=== PATIENT | female | born 1995 | race Hispanic/Latino ===

== ENCOUNTER 2018-04-05 13:01 | Inpatient (IN) | payer MEDICAID, OTHER ==
[~2018-04-05] VITALS: Ht 157.5 cm; Wt 73.5 kg
[2018-04-05] MEDS ORDERED: DINOPROSTONE 10 MG VAGINAL SUPP VG SCH (14:30)
[2018-04-05] MEDS ORDERED: OXYTOCIN-LR 20 UNITS/1000 ML 1,000 ML IV SCH (14:30)
[2018-04-05 14:35] LABS: APPEARANCE,URINE CLOUDY (CLEAR); BILIRUBIN,URINE NEGATIVE (NEGATIVE); COLOR,URINE YELLOW (YELLOW); GLUCOSE, URINE (UA) NEGATIVE (NEGATIVE); KETONES,URINE NEGATIVE (NEGATIVE); LEUKOCYTE ESTERASE ,URINE LARGE (NEGATIVE); NITRATE,URINE NEGATIVE (NEGATIVE); OCCULT BLOOD,URINE TRACE-INTACT (NEGATIVE); PROTEIN,URINE TRACE (NEGATIVE); UROBILINOGEN,URINE 0.2 mg/dL (0.2-1.0)
[2018-04-05 14:36] LABS: HEMATOCRIT 35.4 % (36-48); MEAN CORPUSCULAR HEMOGLOBIN 28.5 pg (27.0-33.0); MEAN CORPUSCULAR HGB CONC 33.9 g/dL (32.0-36.0); NUCLEATED RED BLOOD CELLS 0.1 % (0.0-0.19); PLATELET COUNT (AUTO) 245 K/uL (130-400); RED BLOOD CELL COUNT(AUTO) 4.21 MIL/uL (4.00-5.50); RED CELL DISTRIBUTION WIDTH 14.4 % (11.0-15.5); WHITE BLOOD COUNT (AUTO) 7.5 K/uL (4.8-10.8)
[2018-04-05] MEDS: LACTATED RINGERS 1000ML 1,000 ML IV PRN ×2 (14:40→22:43)
[2018-04-05 14:43] LABS: BACTERIA,URINE Few /HPF (None Seen); SQUAMOUS EPITHELIAL CELL,UR Moderate /HPF (0-2)
[2018-04-05 14:44] LABS: MUCUS,URINE Rare LPF (None Seen)
[2018-04-05] MEDS ORDERED: ACETAMINOPHEN 325 MG TAB PO PRN (22:15)
[2018-04-05] MEDS ORDERED: ACETAMINOPHEN 325 MG TAB ONE (23:00)
[2018-04-06] MEDS: LACTATED RINGERS 1000ML 1,000 ML IV PRN (03:35)
[2018-04-06] MEDS ORDERED: LACTATED RINGERS 1000ML 1,000 ML IV ONE ×2 (03:50→19:05)
[2018-04-06] MEDS ORDERED: OXYTOCIN 10 USP UNITS/ML ONE ×2 (03:51→19:05)
[2018-04-06] MEDS: OXYTOCIN 10 USP UNITS/ML 20 UNIT in LACTATED RINGERS 1000ML 1,000 ML IV SCH ×2 (03:59→19:18)
[2018-04-06 10:23] LABS: HEPATITIS Bs ANTIGEN SCREEN P Negative (Negative)
[2018-04-06] MEDS ORDERED: MEPERIDINE-PF 50 MG/ML SYG IVP ONE (11:15)
[2018-04-06] MEDS ORDERED: PROMETHAZINE HCL 25 MG/ML 1ML AMPULE IM SCH (11:15)
[2018-04-06] MEDS ORDERED: MEPERIDINE-PF 50 MG/ML SYG ONE (11:19)
[2018-04-06] MEDS ORDERED: PROMETHAZINE HCL 25 MG/ML 1ML AMPULE IM ONE (11:19)
[2018-04-06] MEDS ORDERED: MEPERIDINE-PF 50 MG/ML SYG IVP SCH (11:30)
[2018-04-06] MEDS ORDERED: LACTATED RINGERS 1000ML 1,000 ML IV SCH (16:00)
[2018-04-06] MEDS ORDERED: CEFAZOLIN SODIUM 1 GM VIAL IVP PRN (16:00)
[2018-04-06] MEDS ORDERED: CEFAZOLIN SODIUM 1 GM VIAL ONE (16:13)
[2018-04-06] MEDS ORDERED: FENTANYL CITRATE PF 50 MCG/1 ML 2ML VIAL ONE (16:37)
[2018-04-06] MEDS ORDERED: DURAMORPH PF1 MG/ML 10ML AMP IV ONE (16:37)
[2018-04-06] MEDS ORDERED: SENSORCAINE/DEXT/PF 0.75% 2ML AMP IJ ONE (16:39)
[2018-04-06] MEDS ORDERED: METHYLERGONOVINE MALEATE 0.2 MG/1 ML ML ONE (17:02)
[2018-04-06] MEDS ORDERED: ONDANSETRON HCL 4 MG/2 ML VIAL ONE (17:09)
[2018-04-06] MEDS ORDERED: PHENYLEPHRINE HCL 10 MG/ML 1ML VIAL IV ONE (17:09)
[2018-04-06] MEDS ORDERED: SODIUM CHLORIDE 0.9% 10 ML VIAL ONE (17:09)
[2018-04-06] MEDS ORDERED: PROMETHAZINE HCL 25 MG/ML 1ML AMPULE IM PRN ×2 (19:00→20:00)
[2018-04-06] MEDS ORDERED: NALOXONE HCL 0.4 MG/1 ML ML IVP PRN (19:00)
[2018-04-06] MEDS ORDERED: ONDANSETRON HCL 4 MG/2 ML 8 MG in SODIUM CHLORIDE 0.9% 50 ML IVP NR (19:00)
[2018-04-06] MEDS ORDERED: MORPHINE SULFATE 2 MG/ML 1ML SYG IVP PRN (19:00)
[2018-04-06] MEDS ORDERED: METOCLOPRAMIDE 10 MG/2 ML VIAL IVP PRN (19:00)
[2018-04-06] MEDS ORDERED: EPHEDRINE SULFATE 50 MG/ML AMPULE IVP PRN (19:00)
[2018-04-06] MEDS ORDERED: DiphenhydrAMINE HCL 50 MG/ML VIAL IVP PRN (19:00)
[2018-04-06] MEDS ORDERED: ONDANSETRON HCL 4 MG/2 ML VIAL IVP PRN ×2 (19:00)
[2018-04-06] MEDS ORDERED: HYDROCODONE/ACETAMINOPHEN 5/325 MG TAB PO PRN (19:00)
[2018-04-06] MEDS: CALDOLOR 800MG+NS 250ML 250 ML IV SCH (19:20)
[2018-04-06] MEDS ORDERED: OXYTOCIN-LR 20 UNITS/1000 ML 1,000 ML IV PRN (19:58)
[2018-04-06] MEDS ORDERED: SODIUM CHLORIDE 0.9% 10 ML VIAL IVP PRN (20:00)
[2018-04-06] MEDS ORDERED: MEPERIDINE-PF 75 MG/ML SYG IM PRN (20:00)
[2018-04-06] MEDS ORDERED: DEXTROSE 5 %-0.45 % NACL 1,000 ML IV PRN (20:00)
[2018-04-06 20:23] VITALS: BP 125/77
[2018-04-06] MEDS: HYDROCODONE/ACETAMINOPHEN 5/325 MG TAB PO PRN (22:01)
[2018-04-06] MEDS ORDERED: PREN-61 PO (23:08)
[2018-04-06 23:21] VITALS: BP 122/83
[2018-04-07] MEDS: CALDOLOR 800MG+NS 250ML 250 ML IV SCH (03:03)
[2018-04-07 03:39] VITALS: BP 109/65
[2018-04-07 06:53] LABS: HEMATOCRIT 27.6 % (36-48); MEAN CORPUSCULAR HEMOGLOBIN 28.3 pg (27.0-33.0); MEAN CORPUSCULAR HGB CONC 33.1 g/dL (32.0-36.0); MEAN CORPUSCULAR VOLUME 85.5 fL (79-99); PLATELET COUNT (AUTO) 181 K/uL (130-400); RED BLOOD CELL COUNT(AUTO) 3.23 MIL/uL (4.00-5.50); RED CELL DISTRIBUTION WIDTH 14.4 % (11.0-15.5); WHITE BLOOD COUNT (AUTO) 12.2 K/uL (4.8-10.8)
[2018-04-07 07:33] VITALS: BP 114/60
[2018-04-07] MEDS ORDERED: LANOLIN 30GM OINTMENT TP PRN (07:45)
[2018-04-07] MEDS ORDERED: BISACODYL 10 MG SUPP.RECT RC PRN (07:45)
[2018-04-07] MEDS ORDERED: ACETAMINOPHEN EXTRA STRENGTH 500 MG TABLET PO PRN (07:45)
[2018-04-07] MEDS ORDERED: ACETAMINOPHEN-CODEINE 300/30MG TAB PO PRN (07:45)
[2018-04-07] MEDS: SIMETHICONE 80 MG TAB.CHEW PO PRN ×3 (09:14→21:15)
[2018-04-07] MEDS: DOCUSATE SODIUM 100 MG CAP PO SCH ×2 (09:14→21:15)
[2018-04-07] MEDS: IBUPROFEN 600 MG TABLET PO PRN (11:11)
[2018-04-07 12:06] VITALS: BP 114/62
[2018-04-07 15:15] VITALS: BP 114/69
[2018-04-07] MEDS ORDERED: MEASLES/MUMPS/RUBELLA VACCINE, LIVE 0.5 ML/VIAL SQ ONE (17:00)
[2018-04-07 19:30] VITALS: BP 104/66
[2018-04-07 23:57] VITALS: BP 113/70
[2018-04-07] MEDS: HYDROCODONE/ACETAMINOPHEN 5/325 MG TAB PO PRN (23:57)
[2018-04-08 03:30] VITALS: BP 113/70
[2018-04-08 07:32] VITALS: BP 124/78
[2018-04-08] MEDS: SIMETHICONE 80 MG TAB.CHEW PO PRN (09:38)
[2018-04-08] MEDS: DOCUSATE SODIUM 100 MG CAP PO SCH (09:38)
[2018-04-08] MEDS: IBUPROFEN 600 MG TABLET PO PRN (09:38)
[2018-04-08 11:27] VITALS: BP 119/64
== END 2018-04-08 12:55 | disposition home or self-care (01) | DRG 766 ==
LOC: LDH 13:01 → WSH 04-06 20:15
PROVIDERS: ADMIT Obstetrics & Gynecology; ATTEND Obstetrics & Gynecology
PROC: 3E0234Z Introduction of Serum, Toxoid and Vaccine into Muscle, Percutaneous Approach (ICD-10-PCS; 2018-04-06)
PROC: 10D00Z1 Extraction of Products of Conception, Low, Open Approach (ICD-10-PCS; principal; 2018-04-06 16:38)
DX: O62.2 Other uterine inertia (principal); O69.81X0 Labor and delivery complicated by cord around neck, without compression, not applicable or unspecified; O77.0 Labor and delivery complicated by meconium in amniotic fluid; O76 Abnormality in fetal heart rate and rhythm complicating labor and delivery; Z37.0 Single live birth; Z23 Encounter for immunization; Z3A.39 39 weeks gestation of pregnancy
CPT/HCPCS: 36415; 59510; 81001; 85027; 86592; 86850; 86900; 86901; 87340; 90707; A4344; A4351; A4450; A4606; J0690; J1741; J2175; J2210; J2274; J2370; J2405; J2550; J2590; J3010; J3490; J7120